=== PATIENT | male | born 2000 | race Caucasian/White ===

== ENCOUNTER 2018-11-07 14:00 | Outpatient (RCR) | payer OTHER | END 2019-01-22 | disposition still patient (30) | LOC: PT | DX: M54.2 Cervicalgia (principal) ==

== ENCOUNTER → 2020-12-24 | Outpatient (CLI) | payer BC ==
[~2020-12-24] VITALS: Ht 172.7 cm; Wt 87.7 kg
[~2020-12-24] MED LIST: ADVIL 200MG TA200 MG PO
[2020-12-24 15:15] VITALS: BP 133/76
[2020-12-24 15:55] LABS: BASO # 0.03 (0.02-0.10); EOS # 0.05 (0.04-0.40); HEMATOCRIT 45.6 % (42.0-52.0); HEMOGLOBIN 15.5 g/dL (13.5-18.0); LYMPH# 1.18 (1.50-4.00); MEAN CELL VOLUME 84 fl (78-100); MEAN CORPUSCULAR HEMOGLOBIN 29 pg (27-31); MEAN CORPUSCULAR HGB CONC 34 g/dL (33-37); MEAN PLATELET VOLUME 9.6 fl (7.4-10.4); MONO # 0.48 (0.20-0.80); NEU # 3.43 (1.40-6.50); PLATELET COUNT 238 K/mm3 (130-400); RED BLOOD COUNT 5.43 M/mm3 (4.20-5.60); RED CELL DISTRIBUTION WIDTH 12.6 % (11.5-14.5); WHITE BLOOD COUNT 5.2 K/mm3 (4.8-10.8)
[2020-12-24 16:15] LABS: ALBUMIN 4.6 g/dL (3.5-5.0); POTASSIUM 4.3 mmol/L (3.5-5.1); SODIUM 139 mmol/L (136-145)
[2020-12-24 16:16] LABS: CALCIUM 9.7 mg/dL (8.3-10.5)
[2020-12-24 16:18] LABS: GLUCOSE 95 mg/dL (75-110); TOTAL PROTEIN 7.9 g/dL (6.4-8.3)
[2020-12-24 16:19] LABS: CARBON DIOXIDE 23 mmol/L (22-29); TOTAL BILIRUBIN 1.4 mg/dL (0.2-1.2)
[2020-12-24 16:23] LABS: AST-SGOT 23 U/L (5-34)
[2020-12-24 16:24] LABS: ALT/SGPT 42 U/L (0-55)
[2020-12-24 17:07] LABS: URINE APPEARANCE CLEAR; URINE BILIRUBIN NEGATIVE (NEGATIVE); URINE BLOOD NEGATIVE (NEGATIVE); URINE COLOR YELLOW; URINE GLUCOSE NEGATIVE (NEGATIVE); URINE KETONE NEGATIVE (NEGATIVE); URINE LEUKOCYTE ESTERASE NEGATIVE (NEGATIVE); URINE NITRATE NEGATIVE (NEGATIVE); URINE PROTEIN(semi-quant) NEGATIVE (NEGATIVE); URINE UROBILINOGEN NORMAL (NORMAL); URINE WBC 0-1 /hpf (0-3)
[2020-12-24 17:25] LABS: TROPONIN-I < 0.03 ng/mL (<0.030)
[2020-12-24 17:43] VITALS: BP 129/73
== END ==
LOC: AMSURD 15:02
PROVIDERS: Family Medicine
DX: R56.9 Unspecified convulsions (principal); I49.8 Other specified cardiac arrhythmias; I45.89 Other specified conduction disorders
CPT/HCPCS: J7030

== ENCOUNTER → 2020-12-29 | Outpatient (CLI) | payer BC ==
[2020-12-29 10:09] LABS: POTASSIUM 4.2 mmol/L (3.5-5.1)
[2020-12-29 10:10] LABS: CALCIUM 9.8 mg/dL (8.3-10.5)
== END ==
LOC: LAB 09:47
PROVIDERS: Family Medicine
DX: R55 Syncope and collapse (principal)